=== PATIENT | male | born 1955 | race Caucasian/White ===

== ENCOUNTER → 2021-04-13 | Outpatient (CLI) | payer BC ==
[2021-04-14 12:10] LABS: ALPHA-1-ANTITRYPSIN, SERUM 127 mg/dL (101-187)
[2021-04-14 15:12] LABS: MITOCHONDRIAL (M2) ANTIBODY <20.0 Units (0.0-20.0)
== END ==
LOC: LAB 14:25
PROVIDERS: Internal Medicine Gastroenterology
DX: K76.0 Fatty (change of) liver, not elsewhere classified (principal)
CPT/HCPCS: 36415; 82103; 82728; 83540; 83550; 86038

== ENCOUNTER → 2021-05-17 | Outpatient (CLI) | payer BC | LOC: LAB 14:31 | PROVIDERS: Internal Medicine Gastroenterology | DX: R94.5 Abnormal results of liver function studies (principal) | CPT/HCPCS: 36415; 82784; 83516; 86376 ==